=== PATIENT | female | born 1990 | race Caucasian/White ===

== ENCOUNTER 2016-10-12 13:11 | Emergency (ER) | payer MEDICAID ==
[2016-10-12] MEDS ORDERED: LEVONORGESTREL 1.5 MG TABLET PO ONE (15:17)
[2016-10-12] MEDS ORDERED: METRONIDAZOLE 500 MG TAB ONE (15:23)
[2016-10-12] MEDS ORDERED: AZITHROMYCIN 250 MG TAB ONE (15:23)
[2016-10-12] MEDS ORDERED: ONDANSETRON ODT 4 MG TAB ONE (15:23)
[2016-10-12] MEDS ORDERED: CEFTRIAXONE 250 MG VIAL ONE (15:24)
[2016-10-12] MEDS ORDERED: LIDOCAINE 1% MDV 20 ML ONE (15:24)
[2016-10-12] MEDS ORDERED: DIPHTHERIA TOXOID IM.VACC ONE (15:25)
[2016-10-12] MEDS ORDERED: TETANUS TOXOID IM.VACC ONE (15:25)
[2016-10-12] MEDS ORDERED: ISENTRESS 400 MG TABLET PO ONE (15:45)
[2016-10-12] MEDS ORDERED: HEPATITIS B VACCINE 20 MCG/ML IM.VACC ONE (15:45)
[2016-10-12] MEDS ORDERED: EMTRICITABINE/TENOFOVIR 200/300 MG TAB PO ONE (15:45)
== END 2016-10-12 18:04 | disposition home or self-care (01) ==
LOC: ER 13:11 → EEVIPCON 13:11 → ER 18:04
DX: X93.XXXA Assault by handgun discharge, initial encounter (principal); Y93.89 Activity, other specified; Y92.008 Other place in unspecified non-institutional (private) residence as the place of occurrence of the external cause; Y99.8 Other external cause status; T74.21XA Adult sexual abuse, confirmed, initial encounter; S09.90XA Unspecified injury of head, initial encounter; S50.12XA Contusion of left forearm, initial encounter; S50.11XA Contusion of right forearm, initial encounter; S70.12XA Contusion of left thigh, initial encounter; S70.11XA Contusion of right thigh, initial encounter; S50.812A Abrasion of left forearm, initial encounter; S50.811A Abrasion of right forearm, initial encounter; F17.210 Nicotine dependence, cigarettes, uncomplicated; Z23 Encounter for immunization
CPT/HCPCS: 36415; 70450; 72125; 80074; 80076; 81025; 82565; 85025; 86701; 86780; 87491; 87591; 87800; 90471; 90472; 90714; 96372